=== PATIENT | female | born 1965 | race Caucasian/White ===

== ENCOUNTER 2016-04-19 16:03 | Emergency (ER) | payer SELFPAY ==
[2016-04-19 16:10] VITALS: TEMP 98.7; BMI 36.3
[2016-04-19 16:35] LABS: AUTOMATED BASOPHIL 1.6 % (0-2); AUTOMATED EOSINOPHIL 6.1 % (0-5); AUTOMATED LYMPH 28.4 % (17-44); AUTOMATED MONOCYTE 7.1 % (3-10); AUTOMATED NEUTROPHIL 56.8 % (45-76); MPV 10.6 fL (7.4-10.4)
[2016-04-19 16:46] LABS: BLOOD UREA NITROGEN 26 MG/DL (7-17); CALCIUM 9.2 MG/DL (8.4-10.2); CALCULATED OSMOLALITY 277 MOs/Kg (270-290); CHLORIDE 105 mEq/L (98-107); GLUCOSE 110 mg/dL (70-99); SODIUM LEVEL 141 mEq/L (137-146)
[2016-04-19] MEDS ORDERED: KETOROLAC TROMETH 30 MG/ML VIAL IM ONE (17:07)
[2016-04-19] MEDS ORDERED: DEXAMETHASONE PF 10 MG/1 ML VIAL IM ONE (17:07)
--- NOTE | 2016-04-19 17:17 | EDPRACDOC ---
- General Information Chief Complaint: Blood Pressure (Problems) Stated Complaint: LT SHOULDER PAIN NO RECENT INJURY Time Seen by Provider: 04/19/16 17:04 Information Source: Patient Mode Of Arrival: Car Home Medications: Home Medications Escitalopram Oxalate [Lexapro] 20 mg PO DAILY 04/19/16 Hydrocodone/Acetaminophen [Lortab 5-325 mg Tablet] 1 each PO Q4H PRN #15 tablet 04/19/16 Ibuprofen 800 mg PO Q8H PRN #20 tablet 04/19/16 Prednisone [Deltasone, Orasone] 1 tabs PO BID #18 tab 04/19/16 Allergies/Adverse Reactions: Allergies Allergy/AdvReac Type Severity Reaction Status Date / Time No Known Allergies Allergy Verified 04/19/16 16:54 - History of Present 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 PT SAID SHE'S HAD IT BEFORE DUE TO WORK ISSUES, BUT IT USUALLY GOES AWAY AFTER A FEW DAYS. PT SAID THIS IS NOT GOING AWAY. PT DESCRIBES TINGLING GOING DOWN LEFT ARM. NO TRAUMA. Pain Severity: Mild Associated signs and symptoms: Reports: None ED Past Medical History - Patient Medical History Psychological History: Reports: Depression Systemic History: Denies: Cancer Surgical History: Reports: No Significant History. Denies: Hysterectomy - Social Medical History Smoking Status: Never smoker ETOH: None Substance Abuse: None Lives In: Home EDM Review of Systems - Review of Systems ROS Negative Except as Marked: Yes All systems reviewed and were negative except as marked Neurological: Numbness - Physical Exam Constitutional: Alert (Awake), No apparent distress Oriented to: Time, Person, Place Last recorded Vital Signs: Last Vital Signs Temp 98.7 F 04/19/16 16:07 Pulse 69 04/19/16 16:07 Resp 20 04/19/16 16:07 BP 185/85 H 04/19/16 16:07 Pulse Ox 97 04/19/16 16:07 Oxygen Pulse Oxygen Saturation 97 O2 Device Room Air Oxygen Flow Rate Fraction of Inspired Oxygen ( FIO2) - HEENT Head: Normal ( normocephalic) Eye Exam: Normal (PERRL, EOMI, Sclera white) Oropharynx: Normal (Pharynx:Moist without exudate,Gums-no swelling) ENT EAC: Normal TMJ: Normal Nose: No Symptoms Reported (septum midline) Neck: Normal (FROM, trachea at midline) - Respiratory/Cardiovascular Respiratory: Normal - CTA (BBS clear to auscultation without adventitious sounds ) Cardiovascular: Normal (RRR without murmur, gallop or rub) - GI Auscultation: Normal (NABS) Palpation: Normal (Soft,No rebound or guarding, non distended) Tenderness: Non tender Nugent's Sign: Negative - Musculoskeletal Back: Normal (Non-Tender) Extremities: Normal (Normal tone, Pulses 2+ No cyanosis or edema, FROM) - Integumentary Skin: Normal, Warm, Dry Lymphatics: Normal (no adenopathy) - Neurologic Memory Impaired: Normal Motor Function: Normal (Normal tone, Pulses 2+ No cyanosis or edema, FROM) Cranial Nerve: Normal (CN II-X11 intact sensation, strength 5/5) Cerebellar: Normal Mood Description: Normal Perception: Normal Neurologic Comment: SUBJECTIVE NUMBNESS TO LEFT ARM - Results 04/19/16 16:14 04/19/16 16:14 WBC 6.9 xk/uL (3.8-10.8) 04/19/16 16:14 RBC 4.57 xM/uL (4.20-5.40) 04/19/16 16:14 Hgb 14.0 g/dL (12.0-16.0) 04/19/16 16:14 Hct 41.2 % (36-47) 04/19/16 16:14 MCV 90 fL (81-99) 04/19/16 16:14 MCH 30.7 pg (27-32) 04/19/16 16:14 MCHC 34.0 g/dl (33-36) 04/19/16 16:14 RDW 12.8 % (11.5-14.5) 04/19/16 16:14 Plt Count 154 xk/uL (130-400) 04/19/16 16:14 MPV 10.6 fL (7.4-10.4) H 04/19/16 16:14 Neut % (Auto) 56.8 % (45-76) 04/19/16 16:14 Lymph % (Auto) 28.4 % (17-44) 04/19/16 16:14 [place] % (Auto) 7.1 % (3-10) 04/19/16 16:14 Eos % (Auto) 6.1 % (0-5) H 04/19/16 16:14 Baso % (Auto) 1.6 % (0-2) 04/19/16 16:14 Absolute Neuts (auto) 3.86 xk/uL (1.7-8.2) 04/19/16 16:14 Absolute Lymphs (auto) 1.93 xk/uL (0.65-4.75) 04/19/16 16:14 PT 10.5 SEC (9.2-11.2) 04/19/16 16:14 INR 1.0 04/19/16 16:14 APTT 27.0 SEC (22-35) 04/19/16 16:14 Sodium 141 mEq/L (137-146) 04/19/16 16:14 Potassium 3.8 mEq/L (3.5-5.1) 04/19/16 16:14 Chloride 105 mEq/L (98-107) 04/19/16 16:14 Carbon Dioxide 28 mMOL/L (22-33) 04/19/16 16:14 Anion Gap 12 mEq/L (8-16) 04/19/16 16:14 BUN 26 MG/DL (7-17) H 04/19/16 16:14 Creatinine 1.10 MG/DL (0.52-1.04) H 04/19/16 16:14 Estimated GFR (MDRD) 53 mL/min (>=60) L 04/19/16 16:14 Glucose 110 mg/dL (70-99) H 04/19/16 16:14 Calculated Osmolality 277 MOs/Kg (270-290) 04/19/16 16:14 Calcium 9.2 MG/DL (8.4-10.2) 04/19/16 16:14 Total Bilirubin 0.4 MG/DL (0.2-1.3) 04/19/16 16:14 AST 21 IU/L (14-36) 04/19/16 16:14 ALT 33 IU/L (9-52) 04/19/16 16:14 Alkaline Phosphatase 84 IU/L (38-126) 04/19/16 16:14 Troponin I < 0.01 ng/mL (<.04) 04/19/16 16:14 Uxt-F-Ixbljwrcfeh Pept 168 pg/mL (0-450) 04/19/16 16:14 Total Protein 7.0 G/DL (6.3-8.2) 04/19/16 16:14 Albumin 4.1 G/DL (3.5-5.0) 04/19/16 16:14 Lab Results 04/19/16 04/19/16 04/19/16 16:14 16:14 16:14 WBC 6.9 RBC 4.57 Hgb 14.0 Hct 41.2 MCV 90 MCH 30.7 MCHC 34.0 RDW 12.8 Plt Count 154 MPV 10.6 H Neut % (Auto) 56.8 Lymph % (Auto) 28.4 [place] % (Auto) 7.1 Eos % (Auto) 6.1 H Baso % (Auto) 1.6 Absolute Neuts (auto) 3.86 Absolute Lymphs (auto) 1.93 PT 10.5 INR 1.0 APTT 27.0 Sodium 141 Potassium 3.8 Chloride 105 Carbon Dioxide 28 Anion Gap 12 BUN 26 H Creatinine 1.10 H Estimated GFR (MDRD) 53 L Glucose 110 H Calculated Osmolality 277 Calcium 9.2 Total Bilirubin 0.4 AST 21 ALT 33 Alkaline Phosphatase 84 Troponin I < 0.01 Emu-P-Sidacevywtj Pept 168 Total Protein 7.0 Albumin 4.1 - EKG EKG #1 EKG Time: 16:13 -: Yes EKG interpreted by me Rate: bpm: 70 [place]: Normal Rhythm: NSR Block: None Hypertrophy: None ST: Normal Decision Time to Discharge: 17:19 - Departure Yes I personally saw and evaluated the patient. Disposition: Home Condition: Fair Final Diagnosis: Cervical radiculopathy Instructions: Cervical Radiculopathy (ED) Education/Counseling Given To: Patient Education/Counseling Given Regarding: Diagnosis, Treatment, Follow Up Referrals: None,No Provider [Primary Care Provider] - One Week Abhi Ferris MD [Staff Physician] - One Week Prescriptions: New Hydrocodone/Acetaminophen [Lortab 5-325 mg Tablet] 1 each PO Q4H PRN #15 tablet PRN Reason: Pain Ibuprofen 800 mg PO Q8H PRN #20 tablet PRN Reason: Pain Prednisone [Deltasone, Orasone] 1 tabs PO BID #18 tab No Action Escitalopram Oxalate [Lexapro] 20 mg PO DAILY
[2016-04-19 18:22] VITALS: BP 136/75; PULSE 68
== END 2016-04-19 18:21 | disposition home or self-care (01) ==
LOC: ED 16:03
DX: M54.12 Radiculopathy, cervical region (principal)
CPT/HCPCS: 36415; 80053; 83880; 84484; 85025; 85610; 85730; 93005; 96372; 99283; J1100; J1885